=== PATIENT | female | born 2000 | race Caucasian/White ===

== ENCOUNTER 2021-10-01 22:05 | Emergency (ER) | payer OTHER ==
[2021-10-01] MEDS ORDERED: ACETAMINOPHEN TAB 500 MG TAB PO STA (22:53)
[2021-10-01] MEDS ORDERED: IBUPROFEN 800 MG TAB PO STA (22:53)
[2021-10-01] MEDS ORDERED: ONDANSETRON ODT 4 MG TAB PO STA (22:54)
[2021-10-01] MEDS ORDERED: ACETAMINOPHEN ORAL SUSP 160 MG/5 ML CUP PO ONE (23:17)
--- NOTE | 2021-10-01 23:35 | XR ---
EXAMINATION TYPE: XR chest 2V DATE OF EXAM: 10/01/2021 COMPARISON: NONE HISTORY: Pneumonia TECHNIQUE: 2 views FINDINGS: There is a thoracic dextroscoliosis. Heart size is normal. There is some mild infiltrate an d atelectasis in the lower lung blanco. There is no heart failure. There is normal-appearing mediasti num. IMPRESSION: Thoracic dextroscoliosis. There is some mild linear infiltrate and atelectasis at the denia g bases and more on the left side.
--- NOTE | 2021-10-02 00:17 | ED ---
General Adult HPI - General Chief complaint: Fever Stated complaint: COVID+ Time Seen by Provider: 10/01/21 22:53 Source: patient Mode of arrival: ambulatory Limitations: no limitations - History of Present Illness Initial comments: 21-year-old female without any significant past medical history presents to the emergency room for a chief complaint of fever. Patient reports she had symptoms of coronavirus starting Tuesday and then tested positive Tuesday. States she has had body aches and a fever as well as congestion and cough. She has had a sore throat. Patient has not taken Motrin or Tylenol.Patient has no other complaints at this time including shortness of breath, chest pain, abdominal pain, nausea or vomiting, headache, or visual changes. - Related Data Allergies Allergy/AdvReac Type Severity Reaction Status Date / Time No Known Allergies Allergy Verified 10/01/21 22:07 Review of Systems ROS Statement: Those systems with pertinent positive or pertinent negative responses have been documented in the HPI. ROS Other: All systems not noted in ROS Statement are negative. Past Medical History Past Medical History: No Reported History History of Any Multi-Drug Resistant Organisms: None Reported Past Surgical History: No Surgical Hx Reported Past Psychological History: No Psychological Hx Reported Smoking Status: Never smoker Past Alcohol Use History: None Reported Past Drug Use History: None Reported General Exam Limitations: no limitations General appearance: alert, in no apparent distress Head exam: Present: atraumatic Eye exam: Present: normal appearance, PERRL, EOMI. Absent: scleral icterus, conjunctival injection ENT exam: Present: normal exam, mucous membranes moist Neck exam: Present: normal inspection, full ROM. Absent: tenderness Respiratory exam: Present: normal lung sounds bilaterally. Absent: respiratory distress, wheezes Cardiovascular Exam: Present: regular rate, normal rhythm, normal heart sounds GI/Abdominal exam: Present: soft, normal bowel sounds. 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 pt given motrin and tylenol. Coronavirus outpatient positive. Chest x-ray shows minimal infiltrate likely viral in nature. At this time patient will be treated with antibodies after discussing risks versus benefits. She will follow-up with her doctor. She will return for any worsening symptoms. Disposition Clinical Impression: Fever, COVID Disposition: HOME SELF-CARE Condition: Good Instructions (If sedation given, give patient instructions): Fever in Adults (ED), Coronavirus Disease 2019 (COVID-19) Is patient prescribed a controlled substance at d/c from ED?: No Referrals: China Bernard MD [Primary Care Provider] - 1-2 days Time of Disposition: 00:16
[2021-10-02] MEDS ORDERED: SODIUM CHLORIDE 0.9% 50 ML IVPB ONE (00:45)
[2021-10-02] MEDS ORDERED: CASIRIVIMAB/IMDEVIMAB (EUA) 1,200 MG in SODIUM CHLORIDE 0.9% 100 ML IVPB ONE (00:45)
[2021-10-02 04:03] VITALS: BP 106/70; PULSE 79; RESP 18; TEMP 97.3
== END 2021-10-02 04:04 | disposition home or self-care (01) ==
LOC: EC 22:05
DX: U07.1 COVID-19 (principal)
CPT/HCPCS: 96365 ×2; 99283 ×2; 71046; M0243; Q0243